=== PATIENT | female | born 1940 | race Caucasian/White ===

== ENCOUNTER 2019-02-25 12:44 | Inpatient (IN) | payer MEDICARE, OTHER ==
[~2019-02-25] VITALS: Ht 157.5 cm; Wt 85.5 kg
[2019-02-25 12:58] VITALS: BP 171/89
[2019-02-25 14:25] LABS: URINE BLOOD NEGATIVE (Negative); URINE COLOR YELLOW; URINE GLUCOSE-RANDOM NEGATIVE (Negative); URINE KETONES TRACE (Negative); URINE NITRITE-REFLEX NEGATIVE (Negative); URINE PROTEIN 2+ (Negative); URINE SPECIFIC GRAVITY >= 1.030 (1.005-1.030)
[2019-02-25 14:30] LABS: ICTOTEST (BILI CONFIRMATORY) Negative (Negative); URINE BILIRUBIN 1+ (Negative); URINE CLARITY HAZY; URINE LEUKOCYTES-REFLEX 2+ (Negative)
[2019-02-25 14:32] LABS: ABSOLUTE BASOPHILS 0.1 thou/uL (0.0-0.2); ABSOLUTE LYMPHOCYTES 0.7 thou/uL (0.8-5.3); ABSOLUTE MONOCYTES 0.5 thou/uL (0.0-1.2); ABSOLUTE NEUTROPHILS 6.1 thou/uL (1.6-8.1); EOSINOPHILS 0.3 %; HEMATOCRIT 42.8 % (37.0-47.0); HEMOGLOBIN 14.5 gm/dL (12.0-15.0); LYMPHOCYTES 9.5 %; MCH 30.6 pg (26.0-34.0); MCV 90.1 fL (80.0-100.0); MONOCYTES 6.2 %; MPV 9.3 fl. (7.2-11.1); NUCLEATED RBCS 0 /100WBC; PLATELET COUNT* 273 thou/uL (150-400); RBC 4.75 mil/uL (4.20-5.00); RDW-CV 13.9 % (10.5-14.5); WBC 7.4 thou/uL (4.0-11.0)
[2019-02-25 14:33] LABS: AMP/METHAMP Negative (Negative); BARBITURATES Negative (Negative); BENZODIAZEPINES Negative (Negative); COCAINE Negative (Negative); METHADONE Negative (Negative); OPIATES Negative (Negative); PCP Negative (Negative); THC Negative (Negative)
[2019-02-25 14:39] LABS: CALCIUM 9.9 mg/dL (8.5-10.1); CREATININE 2.1 mg/dL (0.6-1.3); POTASSIUM 4.4 mmol/L (3.5-5.1)
[2019-02-25 14:40] LABS: BACTERIA-REFLEX >30 Many /HPF (None Seen); SQUAMOUS >10 Many /LPF (0-3); URINE RBC None Seen /HPF (0-2)
[2019-02-25 14:41] LABS: CASTS None Seen /LPF (None Seen); CRYSTALS None Seen /LPF (None Seen); MUCUS 0-3 Light strn/LPF (None Seen)
[2019-02-25 14:44] LABS: ALBUMIN 4.1 g/dL (3.4-5.0); TOTAL BILIRUBIN 0.4 mg/dL (<0.1-1.0); TOTAL PROTEIN 8.4 g/dL (6.4-8.2)
[2019-02-25 14:49] LABS: ALCOHOL < 10 mg/dL (<10); SALICYLATE < 2.8 mg/dL (2.8-20.0)
[2019-02-25 14:51] LABS: ACETAMINOPHEN < 2 ug/mL (10-30)
--- NOTE | 2019-02-25 15:59 | NUR ---
PT GIVEN BOXED LUNCH PER REQUEST FROM FAMILY WHO STATES THE PATIENT HAS NOT EATEN ALL DAY. PT CURRENTLY SITTING ON THE SIDE OF THE BED WITH THE BOXED LUNCH ON A TRAY BESIDE HER. FAMILY AT BEDSIDE.
[2019-02-25 16:53] VITALS: BP 143/111
[2019-02-25 18:02] VITALS: BP 198/97
--- NOTE | 2019-02-25 18:48 | NUR ---
ADMISSION TO FLOOR COMPLETE. PT ALERT AND APPROPIATE AND STATES SHE KNOWS WHEN SHE FEELS SHE IS SEEING THINGS THEY ARE NOT REAL. PT IS PLESANT AND RELAXED. PT DID NOT WANT SUPPER TONIGHT BUT HAS DRANK WATER AND TEA. FALL PREVENTION DISCUSSED AND BED ALARM ON WITH PT AWARE. PT RESTS IN BED AND WATCHES TV.
[2019-02-25 22:29] VITALS: BP 179/76
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
[2019-02-26 09:50] LABS: CALCIUM 8.9 mg/dL (8.5-10.1); CREATININE 1.5 mg/dL (0.6-1.3)
--- NOTE | 2019-02-26 14:11 | NUR ---
ASSESSMENT COMPLETE. PT ALERT AND ORIENTED TO SELF AND TIME. FORGETFUL OF PLACE AND SITUATION. PT GIVEN IV ROCEPHIN FOR UTI. UROLOGY SIGNED OFF. CASE MANAGEMENT WORKING ON TRANSFER TO GERIATRIC PSYCH. PT IS FALL RISK, PRECUATIONS IN PLACE. PT IN CHAIR PART OF THE DAY. PT IS ON ROOM AIR, VSS. SEE ASSESSMENT AND VITALS FOR OTHER DETAILS. CALL LIGHT WITHIN REACH, WILL CONTINUE PLAN OF CARE
[2019-02-26] MEDS ORDERED: FLOMAX0.4 MG PO (15:34)
[2019-02-26] MEDS ORDERED: CEFDINIR300 MG PO (15:34)
[2019-02-26 16:03] VITALS: BP 179/76
--- NOTE | 2019-02-26 16:38 | NUR ---
Pt to dc/transfer to geriatric psychiatric unit today. TODD faxed updated referral information and clinical regarding pt medical stability to [facility] and then spoke with their intake who accepted referral; accepting [employer] C[employer]ODIAN Tanner Rodriguez [address]. TODD completed transfer forms and arranged ambulance transport for 5 pm. Pt nurse aware and will call report to [phone]. Chart copied for continuation of care.
[2019-02-26 16:57] VITALS: BP 179/76
--- NOTE | 2019-03-08 05:34 | CON ---
[address] [address] CONSULTATION Name: FELICIAJOSÉ MANUEL Lu Room: [address] IN .R.#: [id number] Admission: 02/25/19 Attend Phys: Lu Morin Discharge: 02/26/19 Date of : 40 Report #: [id number] THIS REPORT FOR: //name// CC: Collin Parikh DATE OF SERVICE: 02/26/2019 NEPHROLOGY CONSULTATION CONSULTING PHYSICIAN: Dr. Parikh. REASON FOR NEPHROLOGY CONSULTATION: Elevated creatinine. REASON FOR ADMISSION: The patient has been having hallucinations and delusions and paranoia. HISTORY OF PRESENT ILLNESS: This is a 78-year-old female with past medical history of dementia, has been living with family, has been having delusions for a while, came in because she was having extreme paranoid ideation and auditory hallucinations. She was supposed to go to [facility], but [facility] would not accept her because of creatinine was 2.1, now we do not have a baseline creatinine on her. Overnight some IV fluids were ordered, but she did get till this morning, but then after that she pulled her IV line out. The patient is currently oriented to self. She is oriented to person otherwise and she is partially oriented to time. She is still having paranoid ideation. We do not have morning labs on her. She does not have any past medical history of renal insufficiency that we know of. She also has evidence of UTI. Her postvoid residual was only 150 mL. No history of kidney stones that we know of. ALLERGIES: No known allergies. REVIEW OF SYSTEMS: Cannot obtain from the patient because of her mental status. HOME MEDICATIONS: No reported home medications. PAST MEDICAL AND SURGICAL HISTORY: Known to have dementia. SOCIAL HISTORY: We know that she is living with the family. No history of illicit drug use or alcohol, tobacco use reported. FAMILY HISTORY: We don't know. PHYSICAL EXAMINATION: VITAL SIGNS: Blood pressure is 179/76, pulse rate is 87, temperature 36.7, respiratory rate is 16, her pulse ox was 100% [place] [address] CONSULTATION Name: JOSÉ MANUEL DUARTE Room: [address]#: [id number] Admission: 02/25/19 Attend Phys: Lu Morin Discharge: 02/26/19 Date of : 40 Report #: [id number] GENERAL: She is awake. She is oriented to self, person, and partially to time and that's it. She is constantly asking me if I am going to kill her or if this is a trick. HEAD AND EYES: Atraumatic, normocephalic and normal conjunctivae. EARS, NOSE, AND THROAT: Mucous membranes are moist. NECK: There is no JVD. CHEST: Bilaterally clear to auscultation anteriorly. No crackles or wheezing. CARDIOVASCULAR: S1, S2 normal. No murmurs. ABDOMEN: Soft, nondistended, nontender. Bowel sounds are present. EXTREMITIES: Lower extremities, there is no lower extremity edema. NEUROLOGICAL FUNCTION: As mentioned above, she is oriented to self and person and partially to time and she is moving all extremities. PSYCHIATRIC: As mentioned above, she is anxious. She is paranoid. She has been having hallucinations and delusions. LABS: Hemoglobin is 14.5, WBC 7.4, platelet count is 273. Chloride is 103, sodium is 138, potassium is 4.4, creatinine is 2.1 and other labs are reviewed. IMAGING: Renal ultrasound was reviewed. ASSESSMENT: 1. Elevated creatinine with no known baseline creatinine, creatinine 2.1 on admission, this could be acute kidney injury in the setting of intravascular volume depletion and urinary tract infection. Her renal ultrasound is concerning for dilatation of left collecting system as if she could have passed a kidney stone. No history of kidney stones that we know of. Her urinalysis shows evidence of possible urinary tract infection, but it is also a contaminated specimen with squamous epithelial cells. She does have 2+ protein in it, but that could be a false reading in the presence of urinary tract infection, that should be repeated later on as outpatient. 2. Dilatation of left collecting system, she would benefit from CT abdomen and pelvis, renal stone protocol. 3. Hypertension, which she is also very agitated, so not sure how much of the agitation is playing a role in this. 4. History of dementia and now with acute psychosis. 5. Low tract urinary tract infection. She has been started on antibiotics for that. PLAN: 1. It will be helpful to obtain her baseline creatinine. 2. Recommend doing a CT abdomen and pelvis with renal stone protocol and recommend Urology consult for dilatation of left collecting system. 3. If possible, please try to get labs today to see if there has been improvement in kidney function. 4. If her creatinine is at her baseline creatinine level, then she can just follow with Nephrology as an outpatient and she can go to [facility] from [address] [address] CONSULTATION Name: JOSÉ MANUEL DUARTE Room: [address] IN ..#: [id number] Admission: 02/25/19 Attend Phys: Lu Morin Discharge: 02/26/19 Date of : 40 Report #: [id number] standpoint. 5. Try to maintain I's and O's if possible. 6. If she is not eating and drinking, she will benefit from IV fluids, but I understand it could be a challenge. 7. If her blood pressure continues to stay high despite her being calm, we will add antihypertensives. Thank you for this consultation. We will continue to follow along with you. Discussed with the patient's nurse. <ELECTRONICALLY SIGNED> By: Huong Coreas MD 03/08/19 0534 0932 [id number] Coreas MD /nt
[2019-03-15] MEDS ORDERED: FLOMAX0.4 MG PO (08:44)
[2019-03-15] MEDS ORDERED: RISPERDAL 1 MG T1 MG PO ×2 (08:45→08:57)
== END 2019-02-26 14:45 | DRG 682 ==
LOC: M.ERS 12:44 → M.TBA-ER 15:50 → M.3W 15:50
PROVIDERS: Internal Medicine; Personal Emergency Response Attendant; ADMIT Internal Medicine
DX: N17.9 Acute kidney failure, unspecified (principal); G93.41 Metabolic encephalopathy; N39.0 Urinary tract infection, site not specified; F23 Brief psychotic disorder; E86.0 Dehydration; F03.90 Unspecified dementia, unspecified severity, without behavioral disturbance, psychotic disturbance, mood disturbance, and anxiety; I10 Essential (primary) hypertension

== ENCOUNTER 2020-01-27 10:08 | Emergency (ER) | payer MEDICARE ==
[~2020-01-27] VITALS: Ht 162.6 cm; Wt 81.7 kg
--- NOTE | ~2020-01-27 | EMS ---
[address] [address] EMS Patient Care Report Name: ALMITA GARCIA [facility] [id number] Admission: 01/27/20 Attend Phys: Discharge: 01/27/20 Date of : 40 Report #: [id number] THIS REPORT FOR: //name// Report Transmitted: 01/27/2020 21:17 EMS Care Summary [facility] Sarbjit ANDREW Incident [id number] @ 01/27/2020 09:18 Incident Location [address] [place] [address] Patient Almita Garcia Female, 79 Years 1940 Patient Address [address] [place] [address] Patient History Hypertension (HTN),Dysthymic disorder,Alzheimer's disease, unspecified,Gastro-Esophageal Reflux Disease (GERD),Personal history of other venous thrombosis and embolism, Patient Allergies , Patient Medications Lisinopril, Aspirin, Seroquel, Chief Complaint Hypotension/related symptoms Disposition Transported No Lights/[place] Dispatch Reason Unconscious/Fainting Transported To [facility] Narrative [facility] 317 dispatched to [facility], [address] [facility], on an unresponsive. Starting location is [address] [place] and [address] [address] EMS Patient Care Report Name: ALMITA GARCIA Room: [facility]#: [id number] Admission: 01/27/20 Attend Phys: Discharge: 01/27/20 Date of : 40 Report #: [id number] [facility]. En route, additional information states elderly female located in dining room showing decreased level of consciousness. Summer arrives on scene without incident. Patient (Almita) located in hallway adjacent to dining room with three facility nursing staff around her attempting to assess vital signs. Staff states approximately 15 minutes ago, Almita became unresponsive after eating breakfast. Nursing staff staff states being new caregiver to Almita, but she obtains medical paperwork to provide Yoshi medical history, medications, and allergies to EMS. STaff denies Almita making recent complaints to include: chest pain, shortness of air, recent illness, fever, or diagnosed infection. Almita found sitting upright in chair. Her eyes are closed, airway open/patent, breathing regular/non-labored, skin pale/warm/dry. Strong, regular carotid pulse palpated, but no radial pulse palpable. monitor tech attached, all assessments and treatments performed as noted. EMT Jayy performs manual blood pressure subsequent to monitor reading, finding systolic blood pressure to by 60 mm Hg. Vascular access obtained with fluid administration as noted. During vascular access, Almita begins speaking, showing she is alert and oriented x 4. She states history of similar hypotensive episodes that are relieved after sitting and rest. Almita denies previous hospital evaluation of other events. She agrees to transport to [facility] as family has that as preferred destination in facility chart. Cot placed next to Almita. 317 and IFD use Speer lift to transfer Almita laterally from chair to cot without incident. Almita secured using all seat belts, and cot taken to ambulance where it is lifted to be secured in ambulance. In ambulance, all assessments and treatments performed as noted. Almita denies current complaint. Re-evaluation of blood pressure shows return to Sandras baseline pressure; fluid administration titrated to TKO. [place] begins to [facility]. En route, Almita is continually monitored for any change in status to include reassessment of vitals, secondary assessment, and continued interview. During transport, Almita remains secure on cot in Semi-Fowlers position without added complaint. Vitals trend appropriately, and transport continues under supportive care. Summer arrives at [facility] ED without incident or change to Sandjuvencio status. Her signature is obtained. Cot lifted to be removed from ambulance and taken to ED 10. Cot placed adjacent to ED bed; 317 uses draw sheet to transfer Almita laterally to ED bed without incident. Verbal report given, signatures obtained, and 317 is clear and available. End report. Initial Vitals @09:29SpO2: 94, @09:32SpO2: 92, @09:36SpO2: 99, @09:39SpO2: 100, @09:41SpO2: 100, @09:46SpO2: 100, @09:51SpO2: 99, @10:01SpO2: 100, @09:35 [place] [address] EMS Patient Care Report Name: ALMITA GARCIA Room: [facility] Benita#: [id number] Admission: 01/27/20 Attend Phys: Discharge: 01/27/20 Date of : 40 Report #: [id number] @09:29P: 70,R: 1,BP: 50/33, @09:32P: 67,R: 14,BP: 63/29, @09:41P: 67,R: 14,BP: 139/79, @09:53P: 70,R: 14,BP: 132/82, @09:41XnAL3: 29, @09:88PiBN0: 32, @09:90KoVN7: 29, @09:50ZxFI4: 33, @09:84IdQV7: 32, @10:68KkAB3: 32, @09:29GCS: 14, @09:32GCS: 14, @09:41GCS: 15, @09:53GCS: 15, @09:37 @09:28Glucose: 124, Assessments @09:26MENTAL:SKIN:HEENT:LUNG SOUNDS:ABDOMEN:PELVIS//GI:EXTREMITIES:PULSE:NEURO: Impression Syncope / Fainting Procedures @09:36Other - Medication - 2.000 Liters per Minute (l/min [fluid]) - Nasal CannulaResponse: Improved@09:34 cc () Site: Hand-RightResponse: ImprovedSucceeded@09:39Digital respired carbon dioxide monitoring (regime/therapy)Response: UnchangedSucceeded@09:41Digital respired carbon dioxide monitoring (regime/therapy)Response: UnchangedSucceeded@09:46Digital respired carbon dioxide monitoring (regime/therapy)Response: UnchangedSucceeded@09:51Digital respired carbon dioxide monitoring (regime/therapy)Response: UnchangedSucceeded@09:56Digital respired carbon dioxide monitoring (regime/therapy)Response: UnchangedSucceeded@10:01Digital respired carbon dioxide monitoring (regime/therapy)Response: UnchangedSucceeded@09:3512-Lead ECGResponse: UnchangedSucceeded Timeline 09:17,Dispatch Notified 09:17,Psap Call 09:18,Dispatched 09:18,En Route 09:25,On Scene 09:26,At Patient 09:28,BP: / M,PULSE: ,RR: R,SPO2: Ox,ETCO2: ,B,PAIN: ,GCS: , 09:29,BP: / M,PULSE: ,RR: R,SPO2: 94 Ox,ETCO2: ,BG: ,PAIN: ,GCS: , [place] [address] EMS Patient Care Report Name: ALMITA GARCIA Room: [facility]#: [id number] Admission: 01/27/20 Attend Phys: Discharge: 01/27/20 Date of : 40 Report #: [id number] 09:29,BP: 50/33 M,PULSE: 70,RR: 1 R,SPO2: Ox,ETCO2: ,BG: ,PAIN: ,GCS: , 09:29,BP: / M,PULSE: ,RR: R,SPO2: Ox,ETCO2: ,BG: ,PAIN: ,GCS: 14, 09:30,Call Received 09:32,BP: / M,PULSE: ,RR: R,SPO2: 92 Ox,ETCO2: ,BG: ,PAIN: ,GCS: , 09:32,BP: 63/29 M,PULSE: 67,RR: 14 R,SPO2: Ox,ETCO2: ,BG: ,PAIN: ,GCS: , 09:32,BP: / M,PULSE: ,RR: R,SPO2: Ox,ETCO2: ,BG: ,PAIN: ,GCS: 14, 09:34, cc Site: Hand-Right,Response: ImprovedSucceeded, 09:35,12-Lead ECG,Response: UnchangedSucceeded, 09:35,BP: / M,PULSE: ,RR: R,SPO2: Ox,ETCO2: ,BG: ,PAIN: ,GCS: , 09:36,Other - Medication - 2.000 Liters per Minute (l/min [fluid]) - Nasal Cannula,Response: Improved 09:36,BP: / M,PULSE: ,RR: R,SPO2: 99 Ox,ETCO2: ,BG: ,PAIN: ,GCS: , 09:37,BP: / M,PULSE: ,RR: R,SPO2: Ox,ETCO2: ,BG: ,PAIN: ,GCS: , 09:39,Digital respired carbon dioxide monitoring (regime/therapy),Response: UnchangedSucceeded, 09:39,BP: / M,PULSE: ,RR: R,SPO2: 100 Ox,ETCO2: ,BG: ,PAIN: ,GCS: , 09:39,BP: / M,PULSE: ,RR: R,SPO2: Ox,ETCO2: 29 ,BG: ,PAIN: ,GCS: , 09:41,Digital respired carbon dioxide monitoring (regime/therapy),Response: UnchangedSucceeded, 09:41,BP: / M,PULSE: ,RR: R,SPO2: 100 Ox,ETCO2: ,BG: ,PAIN: ,GCS: , 09:41,BP: 139/79 M,PULSE: 67,RR: 14 R,SPO2: Ox,ETCO2: ,BG: ,PAIN: ,GCS: , 09:41,BP: / M,PULSE: ,RR: R,SPO2: Ox,ETCO2: 32 ,BG: ,PAIN: ,GCS: , 09:41,BP: / M,PULSE: ,RR: R,SPO2: Ox,ETCO2: ,BG: ,PAIN: ,GCS: 15, 09:46,Digital respired carbon dioxide monitoring (regime/therapy),Response: UnchangedSucceeded, 09:46,BP: / M,PULSE: ,RR: R,SPO2: 100 Ox,ETCO2: ,BG: ,PAIN: ,GCS: , 09:46,BP: / M,PULSE: ,RR: R,SPO2: Ox,ETCO2: 29 ,BG: ,PAIN: ,GCS: , 09:51,Digital respired carbon dioxide monitoring (regime/therapy),Response: UnchangedSucceeded, 09:51,BP: / M,PULSE: ,RR: R,SPO2: 99 Ox,ETCO2: ,BG: ,PAIN: ,GCS: , 09:51,BP: / M,PULSE: ,RR: R,SPO2: Ox,ETCO2: 33 ,BG: ,PAIN: ,GCS: , 09:51,Depart Scene 09:53,BP: 132/82 M,PULSE: 70,RR: 14 R,SPO2: Ox,ETCO2: ,BG: ,PAIN: ,GCS: , 09:53,BP: / M,PULSE: ,RR: R,SPO2: Ox,ETCO2: ,BG: ,PAIN: ,GCS: 15, 09:56,Digital respired carbon dioxide monitoring (regime/therapy),Response: UnchangedSucceeded, 09:56,BP: / M,PULSE: ,RR: R,SPO2: Ox,ETCO2: 32 ,BG: ,PAIN: ,GCS: , 10:01,Digital respired carbon dioxide monitoring (regime/therapy),Response: UnchangedSucceeded, 10:01,BP: / M,PULSE: ,RR: R,SPO2: 100 Ox,ETCO2: ,BG: ,PAIN: ,GCS: , 10:01,BP: / M,PULSE: ,RR: R,SPO2: Ox,ETCO2: 32 ,BG: ,PAIN: ,GCS: , 10:03,At Destination 10:21,Call Closed Disclaimer v1.1 Copyright 2020 [employer] [address] [address] EMS Patient Care Report Name: ALMITA GARCIA Room: [facility] [id number] Admission: 01/27/20 Attend Phys: Discharge: 01/27/20 Date of : 40 Report #: [id number] This EMS Care Summary contains data elements from the applicable legal record (which may be displayed differently). It is designed to provide pertinent information for the following purposes: continuity of care, clinical quality, and state data reporting. The complete legal record is available to ED staff and administrators of the receiving hospital in [facility]'s Patient Tracker. All data is provided "as is."
[~2020-01-27 10:08] MED LIST: CEFDINIR300 MG PO; FLOMAX0.4 MG PO; RISPERDAL 1 MG T1 MG PO
[2020-01-27] MEDS ORDERED: LISINOPRIL10 MG PO (10:19)
[2020-01-27] MEDS ORDERED: ASA81BEC PO (10:19)
[2020-01-27] MEDS ORDERED: SEROQUEL 50 MG50 M1 PO (10:19)
[2020-01-27 10:39] LABS: ABSOLUTE EOSINOPHILS 0.2 thou/uL (0.0-0.7); ABSOLUTE LYMPHOCYTES 0.7 thou/uL (0.8-5.3); ABSOLUTE MONOCYTES 0.3 thou/uL (0.0-1.2); ABSOLUTE NEUTROPHILS 3.1 thou/uL (1.6-8.1); BASOPHILS 0.9 %; EOSINOPHILS 4.9 %; HEMATOCRIT 35.7 % (37.0-47.0); HEMOGLOBIN 12.1 gm/dL (12.0-15.0); LYMPHOCYTES 16.4 %; MCH 31.1 pg (26.0-34.0); MCHC 33.9 g/dL (28.0-37.0); MCV 91.7 fL (80.0-100.0); MONOCYTES 7.6 %; MPV 8.5 fl. (7.2-11.1); NUCLEATED RBCS 0 /100WBC; PLATELET COUNT* 209 thou/uL (150-400); POLYS 70.2 %; RBC 3.89 mil/uL (4.20-5.00); RDW-CV 13.4 % (10.5-14.5); WBC 4.3 thou/uL (4.0-11.0)
[2020-01-27 10:47] LABS: CALCIUM 8.7 mg/dL (8.5-10.1); CREATININE 1.6 mg/dL (0.6-1.3); POTASSIUM 4.8 mmol/L (3.5-5.1)
[2020-01-27 10:51] LABS: ALBUMIN 3.2 g/dL (3.4-5.0); TOTAL BILIRUBIN 0.3 mg/dL (<0.1-1.0); TOTAL PROTEIN 6.7 g/dL (6.4-8.2)
[2020-01-27 11:10] LABS: PROTIME 10.7 Seconds (9.20-11.50)
[2020-01-27 13:31] VITALS: BP 196/94
--- NOTE | 2020-01-27 15:41 | EKG ---
[place] [address] ELECTROCARDIOGRAM REPORT Name: DUARTEJOSÉ MANUEL Lu Room: [facility]#: [id number] Admission: 01/27/20 Attend Phys: Discharge: 01/27/20 Date of : 40 Date of Service: 01/27/20 1014 Report #: [id number] THIS REPORT FOR: //name// [facility] ED Test Date: 2020-01-27 Test Time: 10:14:53 Pat Name: JOSÉ MANUEL DUARTE Department: Room: Gender: Social Psychologist: : 1940 Requested By: Brian Yu Order Number: [id number] MD: Terry Ortez Measurements Intervals [place] Rate: 70 P: 79 VA: 187 QRS: -45 QRSD: 112 T: 49 QT: 409 QTc: 442 Interpretive Statements Sinus rhythm Left anterior fascicular block Left ventricular hypertrophy No previous ECG available for comparison Electronically Signed On 01-27-2020 15:41:33 CDT by Terry Ortez [email or web address] <ELECTRONICALLY SIGNED> By: Terry Ortez MD, [facility] 01/27/20 1541 1014 1014 Terry Ortez MD, [facility] /EPI
== END 2020-01-27 13:31 | disposition home or self-care (01) ==
LOC: M.ERS 10:08
PROVIDERS: Family Medicine
DX: R55 Syncope and collapse (principal); Z87.440 Personal history of urinary (tract) infections; Z20.828 Contact with and (suspected) exposure to other viral communicable diseases